=== PATIENT | male | born 1945 | race Caucasian/White ===

== ENCOUNTER → 2017-02-23 | Outpatient (CLI) | payer OTHER, BC ==
[~2017-02-23] MED LIST: ASPEC81 PO; Iron PO; METO25TA3 PO
== END | disposition home or self-care (01) ==
LOC: C.LAB1850 10:42
PROVIDERS: ATTEND Urology
DX: R97.20 Elevated prostate specific antigen [PSA] (principal)

== ENCOUNTER → 2017-03-11 | Outpatient (CLI) | payer OTHER, BC ==
--- NOTE | 2017-03-11 11:16 | DIAGNOSTIC IMAGING REPORT ---
ULTRASOUND RIGHT GROIN NONVASCULAR CLINICAL HISTORY: Inguinal hernia. COMPARISON STUDY: Ultrasound of the right groin dated 10/16/2014. FINDINGS: Real-time grayscale sonography of the right groin is performed to assess for the presence of inguinal hernia. Hernia mesh is suggested. There is no sonographic evidence of right inguinal hernia at the time of examination. No hernia could be elicited by having the patient perform the Valsalva maneuver. No inguinal lymphadenopathy is seen. IMPRESSION: There is no sonographic evidence of right inguinal hernia. Electronically signed by: Bahman Barr M.D. 03/11/2017 11:15 AM Dictated Date/Time: 03/11/2017 11:14 AM
== END | disposition home or self-care (01) ==
LOC: C.ULTR 10:33
PROVIDERS: ATTEND Surgery
DX: R10.30 Lower abdominal pain, unspecified (principal)

== ENCOUNTER → 2017-05-21 | Outpatient (CLI) | payer OTHER, BC ==
[2017-05-21 12:32] LABS: BASO % 0.6 %; BASO ABS # 0.02 K/uL (0-0.2); COMPLETE YES; EOS % 7.5 %; HEMATOCRIT 42.3 % (42-52); LYMPH % 41.6 %; LYMPH ABS # 1.38 K/uL (1.2-3.4); MEAN CELL VOLUME 95.5 fL (80-100); MEAN CORPUSCULAR HEMOGLOBIN 31.8 pg (25-34); MEAN CORPUSCULAR HGB CONC 33.3 g/dl (32-36); MEAN PLATELET VOLUME 10.9 fL (7.4-10.4); MONO % 11.1 %; NEUT % 39.2 %; PLATELET COUNT 152 K/uL (130-400); RED BLOOD COUNT 4.43 M/uL (4.7-6.1); WHITE BLOOD COUNT 3.32 K/uL (4.8-10.8)
[2017-05-21 12:50] LABS: BLOOD UREA NITROGEN 30 mg/dl (7-18); BUN/CREATININE RATIO 21.4 (10-20); CALCIUM 9.4 mg/dl (8.5-10.1); CARBON DIOXIDE 30 mmol/L (21-32); CHLORIDE 107 mmol/L (98-107); GLUCOSE 96 mg/dl (70-99); POTASSIUM 4.1 mmol/L (3.5-5.1); SODIUM 142 mmol/L (136-145)
== END | disposition home or self-care (01) ==
LOC: C.LAB1850 10:39
PROVIDERS: ATTEND Internal Medicine Cardiovascular Disease
DX: R73.9 Hyperglycemia, unspecified (principal); D64.9 Anemia, unspecified

== ENCOUNTER → 2017-07-23 | Outpatient (CLI) | payer OTHER, BC ==
[2017-07-23 15:04] LABS: BASO % 0.7 %; BASO ABS # 0.03 K/uL (0-0.2); COMPLETE YES; EOS % 5.4 %; HEMATOCRIT 39.9 % (42-52); IG% 0.2 %; LYMPH % 40.2 %; MEAN CELL VOLUME 94.5 fL (80-100); MEAN CORPUSCULAR HEMOGLOBIN 31.8 pg (25-34); MEAN CORPUSCULAR HGB CONC 33.6 g/dl (32-36); MEAN PLATELET VOLUME 10.7 fL (7.4-10.4); MONO % 12.3 %; NEUT % 41.2 %; PLATELET COUNT 170 K/uL (130-400); RED BLOOD COUNT 4.22 M/uL (4.7-6.1); WHITE BLOOD COUNT 4.48 K/uL (4.8-10.8)
== END | disposition home or self-care (01) ==
LOC: C.LAB1850 13:07
PROVIDERS: ATTEND Nurse Practitioner Family
DX: D70.9 Neutropenia, unspecified (principal)

== ENCOUNTER → 2018-02-28 | Outpatient (CLI) | payer OTHER, BC ==
[~2018-02-28] MED LIST changes: -METO25TA3 PO; +METO25TA4 PO
== END | disposition home or self-care (01) ==
LOC: C.LAB1850 16:18
PROVIDERS: ATTEND Urology
DX: F52.8 Other sexual dysfunction not due to a substance or known physiological condition (principal); N40.0 Benign prostatic hyperplasia without lower urinary tract symptoms

== ENCOUNTER → 2018-05-24 | Day surgery (SDC) | payer OTHER, BC ==
[~2018-05-24] VITALS: Ht 195.6 cm; Wt 82.0 kg
[~2018-05-24] MED LIST changes: +ASPCH81X PO; -ASPEC81 PO; +FERR18TA2 PO; +IMD/2 PO; -Iron PO; +MAGN250T3 PO; +MISCCAP80 PO
[2018-05-24 09:02] VITALS: BP 170/83; PULSE 43; TEMP 36.3; O2SAT 99; Ht 195.6 cm; Wt 82.0 kg
[2018-05-24 11:46] VITALS: BP 144/78; PULSE 39; TEMP 36.3; O2SAT 100
--- NOTE | 2018-05-26 10:59 | Procedure Note ---
Breath Hydrogen Test Interpretation Assessment: Normal Lactose breath test. Plan: Followup with ordering provider for further evaluation and recommendations.
--- NOTE | 2018-06-15 12:00 | EDITING REQUIRED CODING QUERY ---
CODING QUERY To promote full compliance with coding requirements relating to patient care, provider participation is requested in all cases of master electrician uncertainty. Please assist us with the question(s) below: Coding Question(s): Could you please provide a description of the procedure done. Physician's Response(s): Lactose Breath test for Diarrhea and unintentional weight loss Thank you Soledad Michaels Principal Diagnosis: "_that condition established after study, to be chiefly responsible for occasioning the admission of the patient to the hospital for care." Co-Existing Principal Diagnosis: "_when two or more diagnoses equally meet the criteria for principal diagnosis as determined by the circumstances of admission, diagnostic work up, and/or therapy provided, and the Alphabetic Index, Tabular List, or another coding guideline does not provide sequencing direction, any one of the diagnoses may be sequenced first." "When the physician has documented what appears to be a current diagnosis in the body of the record, but has not included the diagnosis in the final diagnostic statement, the physician should be asked whether the diagnosis should be added." (Source [facility] 2 QTR90. p3-4)
== END | disposition home or self-care (01) ==
LOC: C.MTU 08:20
PROVIDERS: ATTEND Internal Medicine
DX: R19.7 Diarrhea, unspecified (principal); R63.4 Abnormal weight loss

== ENCOUNTER → 2018-06-06 | Outpatient (CLI) | payer OTHER, BC ==
[~2018-06-06] MED LIST changes: -FERR18TA2 PO; -MISCCAP80 PO
[2018-06-06 17:53] LABS: ALBUMIN 4.1 gm/dl (3.4-5.0); ALKALINE PHOSPHATASE 81 U/L (45-117); ALT/SGPT 26 U/L (12-78); AST/SGOT 24 U/L (15-37); BLOOD UREA NITROGEN 38 mg/dl (7-18); CALCIUM 8.9 mg/dl (8.5-10.1); CARBON DIOXIDE 25 mmol/L (21-32); CREATININE 1.39 mg/dl (0.60-1.40); GLUCOSE 142 mg/dl (70-99); SODIUM 139 mmol/L (136-145); TOTAL PROTEIN 7.2 gm/dl (6.4-8.2)
== END | disposition home or self-care (01) ==
LOC: C.LAB1850 16:27
PROVIDERS: ATTEND Registered Nurse
DX: R19.7 Diarrhea, unspecified (principal); R63.4 Abnormal weight loss

== ENCOUNTER → 2018-06-08 | Outpatient (CLI) | payer OTHER, BC ==
[~2018-06-08] MED LIST changes: +OPTIRAY 320 IV PRN
--- NOTE | 2018-06-08 15:49 | DIAGNOSTIC IMAGING REPORT ---
ABDOMEN AND PELVIS CT WITH IV AND ORAL CONTRAST CT DOSE: 327.05 mGy.cm HISTORY: DIARRHEA,UNINTENTIONAL WEIGHT LOSS TECHNIQUE: Multiaxial CT images of the abdomen and pelvis were performed following the use of intravenous and oral contrast. A dose lowering technique was utilized adhering to the principles of ALARA. COMPARISON STUDY: None. FINDINGS: The lung bases are clear. No pneumoperitoneum. No pneumatosis. No suspicious lytic or blastic osseous lesions. Small focal areas of hypodensity within the liver adjacent to the gallbladder fossa. These are nonspecific but likely represent focal fat. The gallbladder, spleen, adrenal glands, pancreas, and kidneys are unremarkable. No retroperitoneal lymphadenopathy. Mild bladder wall thickening. The prostate gland is enlarged. There appears to be focal thickening at the rectosigmoid junction with mild infiltration of the adjacent pericolonic fat. This is best seen on image 362. Questionable thickening within the descending colon is likely due to underdistention. Moderate stool within the colon. No evidence for bowel obstruction. The appendix is not identified with certainty. IMPRESSION: 1. There appears to be focal bowel wall thickening at the rectosigmoid junction with mild infiltration of the adjacent fat. This could represent a colitis. Colonoscopy is recommended to exclude the possibility of underlying colonic lesion. 2. No evidence for bowel obstruction. 3. Mild bladder wall thickening. This is likely due to chronic outlet obstruction from the enlarged prostate gland. Correlation with urinalysis is recommended. Electronically signed by: Henrique Gaffney M.D. 06/08/2018 3:48 PM Dictated Date/Time: 06/08/2018 3:35 PM
== END | disposition home or self-care (01) ==
LOC: C.CTS 15:16
PROVIDERS: ATTEND Registered Nurse
DX: R19.7 Diarrhea, unspecified (principal); R63.4 Abnormal weight loss